=== PATIENT | female | born 1950 | race Caucasian/White ===

== ENCOUNTER 2020-10-24 17:55 | Emergency (ER) | payer OTHER, MEDICARE, SELFPAY ==
[2020-10-24 18:17] VITALS: BP 144/90; PULSE 87; RESP 14; TEMP 36.7; O2SAT 98; BMI 28.2
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
[2020-10-24 20:26] VITALS: BP 132/85; PULSE 76; RESP 14; O2SAT 100
== END 2020-10-24 20:27 | disposition home or self-care (01) ==
PROVIDERS: Emergency Provider Nurse Practitioner Family
DX: S50.02XA Contusion of left elbow, initial encounter (principal); S63.502A Unspecified sprain of left wrist, initial encounter; S66.912A Strain of unspecified muscle, fascia and tendon at wrist and hand level, left hand, initial encounter; V89.2XXA Person injured in unspecified motor-vehicle accident, traffic, initial encounter
CPT/HCPCS: 73080; 73110; 99282